=== PATIENT | male | born 1955 | race Caucasian/White ===

== ENCOUNTER 2018-08-30 19:42 | Emergency (ER) | payer BC ==
[~2018-08-30] VITALS: Ht 172.7 cm; Wt 85.7 kg
[~2018-08-30 19:42] MED LIST: AMBIEN 5 MG TABL5 M1 PO; PEGINTRON IM; RESTORIL15 MG PO; RIBASPHERE600 MG PO; SERTRALINE HCL50 MG PO
[2018-08-30] MEDS ORDERED: METOPROLOL TART75 MG PO (19:56)
[2018-08-30] MEDS ORDERED: LIPITOR10 MG PO (19:56)
[2018-08-30] MEDS ORDERED: FLOMAX0.4 MG PO (19:56)
[2018-08-30 21:30] VITALS: BP 119/73
== END 2018-08-30 21:30 | disposition home or self-care (01) ==
LOC: ER 19:42
DX: S61.211A Laceration without foreign body of left index finger without damage to nail, initial encounter (principal); F17.210 Nicotine dependence, cigarettes, uncomplicated; W26.0XXA Contact with knife, initial encounter; Y92.89 Other specified places as the place of occurrence of the external cause; Y93.89 Activity, other specified; Y99.8 Other external cause status